=== PATIENT | male | born 1940 | race Caucasian/White ===

== ENCOUNTER 2018-10-11 10:06 | Inpatient (IN) | payer MEDICARE, BC ==
[~2018-10-11] VITALS: Ht 182.9 cm; Wt 122.0 kg
[~2018-10-11 10:06] MED LIST: ACYC1CAP23 PO; ALLO100T PO; ASCO500T11 PO; ATE50T PO; ATOR20TA50 PO; BICA50TA13 PO; CARB25TA22 PO; CYCL0.05 EACHEYE; DOXA4TAB40 PO; FOLI1TAB6 PO; HYDR-4441 PO; LEVO125T7 PO; NIFE90TA30 PO; PANT40TA2 PO; SULF500T37 PO; [UNRECOGNIZED DRUG - CODE] PO
[2018-10-11] MEDS ORDERED: MORPHINE SULFATE 4 MG/ML SYR/VIAL IV ONE (11:00)
[2018-10-11] MEDS ORDERED: ONDANSETRON HCL 4 MG/2 ML VIAL IV ONE (11:00)
[2018-10-11 11:01] LABS: Urine Bacteria NONE SEEN /hpf (None Seen); Urine Blood Negative /uL (Negative); Urine Specific Gravity 1.013 (1.001-1.035); Urine WBC 1 /hpf (0 - 3)
[2018-10-11 11:08] LABS: Basophils # (auto) 0 uL; Basophils % (auto) 0.6 % (0.0-2.0); Eosinophils # (auto) 0.1 uL; Eosinophils % (auto) 1.2 % (0.0-7.0); Hematocrit 29.3 % (41.0-53.0); Hemoglobin 9.4 g/dL (13.5-17.5); Lymphocytes % (auto) 16.7 % (10.0-50.0); Mean Corpuscular Hemoglobin 30.8 pg (28.0-32.0); Mean Corpuscular Hgb Conc. 32.1 g/dL (32.0-36.0); Monocytes # (auto) 0.9 uL; Monocytes % (auto) 14.4 % (0.0-12.0); Neutrophils # (auto) 4.1 uL; Neutrophils % (auto) 67.1 % (37.0-80.0); Nucleated Red Blood Cells % 0.1 %; Platelet Count (auto) 168 10^3/uL (140-450); Red Blood Cells 3.05 10^6/uL (4.5-5.90); Red Cell Distribution Width 17.5 % (11.8-14.3); White Blood Cell 6.1 10^3/uL (4.4-10.8)
[2018-10-11 11:19] LABS: Albumin 3.2 g/dL (3.4-5.0); Anion Gap 4 (5-15); Blood Urea Nitrogen 29 mg/dL (7-18); Calcium 9.1 mg/dL (8.5-10.1); Carbon Dioxide 22 mmol/L (21-32); Chloride 112 mmol/L (98-107); Glucose 108 mg/dL (74-106); Potassium 4.4 mmol/L (3.5-5.1); Sodium 138 mmol/L (136-145)
[2018-10-11 11:24] LABS: Alanine Aminotransferase < 6 U/L (16-61); Alkaline Phosphatase 98 U/L (45-117); Aspartate Aminotransferase 13 U/L (15-37); BUN/Creatinine Ratio 17.1; Bilirubin, Total 0.3 mg/dL (0.2-1.0); GFR African American 51 mL/min; GFR Non-African American 42 mL/min; Total Protein 7.5 g/dL (6.4-8.2)
[2018-10-11] MEDS ORDERED: cefTRIAXone 1GM/50ML D5W 50 ML IV ONE (12:30)
[2018-10-11] MEDS ORDERED: ACETAMINOPHEN 500 MG TAB PO PRN (13:15)
[2018-10-11] MEDS ORDERED: LEVOFLOXACIN 500MG 100 ML IV ONE (13:15)
[2018-10-11] MEDS ORDERED: NITROGLYCERIN 0.4 MG SL TAB SL PRN (13:15)
[2018-10-11] MEDS ORDERED: ALBUTEROL SULF 2.5 MG/0.5ML(0.5%) NEB SOLN NEB PRN (13:15)
[2018-10-11] MEDS ORDERED: PROMETHAZINE HCL 25 MG/ML 1ML IV PRN (13:15)
[2018-10-11] MEDS ORDERED: MORPHINE SULF INJ 2 MG/ML SYRINGE 1ML IV PRN (13:15)
[2018-10-11] MEDS ORDERED: LACTULOSE 20Gm/30ML SOLN PO PRN (13:15)
[2018-10-11] MEDS ORDERED: TEMAZEPAM 15 MG CAP PO PRN (13:15)
[2018-10-11] MEDS ORDERED: LORazepam 0.5 MG TAB PO PRN (13:15)
[2018-10-11] MEDS: SODIUM CHLORIDE 0.9% 1,000 ML IV SCH (13:41)
[2018-10-11] MEDS: CLINDAMYCIN 600MG IV 50 ML IV SCH ×2 (14:14→22:04)
[2018-10-11 15:25] VITALS: BP 142/84
[2018-10-11] MEDS ORDERED: HYDR-4683 PO (16:10)
[2018-10-11] MEDS ORDERED: FEXO-157 PO (16:10)
[2018-10-11] MEDS ORDERED: LEFL1TAB3 PO (16:10)
[2018-10-11] MEDS ORDERED: IBU600T PO (16:10)
[2018-10-11] MEDS ORDERED: METHPOW PO (16:10)
[2018-10-11] MEDS ORDERED: FURO40TA4 PO (16:10)
[2018-10-11] MEDS ORDERED: FLUT250M2 IN (16:10)
[2018-10-11] MEDS ORDERED: POM PO (16:10)
[2018-10-11 16:35] VITALS: BP 169/87
[2018-10-11 17:00] VITALS: BP 147/79
[2018-10-11] MEDS: ALBUTEROL SULF 2.5 MG/0.5ML(0.5%) NEB SOLN NEB SCH (19:12)
[2018-10-11] MEDS: traMADol HCL 50 MG TAB PO PRN (20:46)
[2018-10-11 21:46] VITALS: BP 142/70
[2018-10-11] MEDS ORDERED: ACYCLOVIR 200 MG/5 ML SUSP PO SCH (22:00)
[2018-10-11] MEDS: CYCLOSPORINE EYE EACHEYE SCH (22:00)
[2018-10-11] MEDS: ACYCLOVIR 400 MG TAB PO SCH (22:04)
[2018-10-11] MEDS: ATORVASTATIN 20 MG TAB PO SCH (22:04)
[2018-10-11] MEDS: DOXAZOSIN MESYL 2 MG TAB PO SCH (22:05)
[2018-10-11] MEDS: CARBIDOPA W LEVODOPA 25/100mg TABLET PO SCH (22:05)
[2018-10-11] MEDS: PANTOPRAZOLE 40 MG TAB PO SCH (22:06)
[2018-10-12] MEDS: ALBUTEROL SULF 2.5 MG/0.5ML(0.5%) NEB SOLN NEB SCH ×4 (00:50→19:13)
[2018-10-12] MEDS: SODIUM CHLORIDE 0.9% 1,000 ML IV SCH (02:13)
[2018-10-12 05:22] VITALS: BP 160/79
[2018-10-12] MEDS: CLINDAMYCIN 600MG IV 50 ML IV SCH ×3 (06:28→22:20)
[2018-10-12] MEDS: ACYCLOVIR 400 MG TAB PO SCH ×2 (06:29→10:29)
[2018-10-12] MEDS: CARBIDOPA W LEVODOPA 25/100mg TABLET PO SCH ×4 (06:29→22:19)
[2018-10-12] MEDS: LEVOTHYROXINE SODIUM 50 MCG TAB PO SCH (06:29)
[2018-10-12 06:49] LABS: Alanine Aminotransferase < 6 U/L (16-61); Albumin 2.7 g/dL (3.4-5.0); Anion Gap 4 (5-15); Aspartate Aminotransferase 10 U/L (15-37); Blood Urea Nitrogen 23 mg/dL (7-18); Calcium 8.7 mg/dL (8.5-10.1); Carbon Dioxide 21 mmol/L (21-32); Chloride 113 mmol/L (98-107); Glucose 82 mg/dL (74-106); Potassium 4.5 mmol/L (3.5-5.1); Sodium 138 mmol/L (136-145)
[2018-10-12 06:52] LABS: Alkaline Phosphatase 79 U/L (45-117); Bilirubin, Total 0.3 mg/dL (0.2-1.0); GFR African American 61 mL/min; GFR Non-African American 51 mL/min; Total Protein 6.4 g/dL (6.4-8.2)
[2018-10-12 09:00] VITALS: BP 155/76
[2018-10-12] MEDS ORDERED: PANTOPRAZOLE 40 MG TAB PO SCH (10:00)
[2018-10-12] MEDS: CYCLOSPORINE EYE EACHEYE SCH ×2 (10:00→22:20)
[2018-10-12] MEDS: LEVOFLOXACIN 500MG 100 ML IV SCH (10:27)
[2018-10-12] MEDS: ENOXAPARIN SOD 40 MG/0.4 ML SYRINGE SC SCH (10:27)
[2018-10-12] MEDS: BICALUTAMIDE 50 MG TAB PO SCH (10:28)
[2018-10-12] MEDS: SULFASALAZINE 500 MG TAB PO SCH ×2 (10:29→18:19)
[2018-10-12] MEDS: PANTOPRAZOLE 40 MG TAB PO SCH ×2 (10:29→22:20)
[2018-10-12] MEDS: NIFEdipine ER 30 MG TAB PO SCH (10:30)
[2018-10-12] MEDS: ALLOPURINOL 100 MG TAB PO SCH (10:30)
[2018-10-12] MEDS: ACETYLCYSTEINE 10 %(100MG/ML) SOL 4ML NEB SCH ×2 (11:49→19:13)
[2018-10-12 13:00] VITALS: BP 154/87
[2018-10-12 17:00] VITALS: BP 153/95
[2018-10-12] MEDS: traMADol HCL 50 MG TAB PO PRN (18:19)
[2018-10-12 22:00] VITALS: BP 146/74
[2018-10-12] MEDS: DOXAZOSIN MESYL 2 MG TAB PO SCH (22:20)
[2018-10-12] MEDS: ATORVASTATIN 20 MG TAB PO SCH (22:20)
[2018-10-13] MEDS: ACETYLCYSTEINE 10 %(100MG/ML) SOL 4ML NEB SCH ×4 (00:01→20:10)
[2018-10-13] MEDS: ALBUTEROL SULF 2.5 MG/0.5ML(0.5%) NEB SOLN NEB SCH ×4 (00:02→20:10)
[2018-10-13] MEDS: traMADol HCL 50 MG TAB PO PRN ×2 (00:40→16:45)
[2018-10-13] MEDS: MORPHINE SULFATE 4 MG/ML SYR/VIAL IV PRN ×2 (04:35→12:01)
[2018-10-13 05:00] VITALS: BP 143/69
[2018-10-13] MEDS: LEVOTHYROXINE SODIUM 50 MCG TAB PO SCH (06:22)
[2018-10-13] MEDS: CARBIDOPA W LEVODOPA 25/100mg TABLET PO SCH ×4 (06:22→22:20)
[2018-10-13] MEDS: CLINDAMYCIN 600MG IV 50 ML IV SCH ×3 (06:22→22:19)
[2018-10-13 06:47] LABS: Potassium 4.9 mmol/L (3.5-5.1)
[2018-10-13 06:54] LABS: BUN/Creatinine Ratio 16.6; Calcium 8.8 mg/dL (8.5-10.1)
[2018-10-13 09:00] VITALS: BP 154/91
[2018-10-13] MEDS: ALLOPURINOL 100 MG TAB PO SCH (09:37)
[2018-10-13] MEDS: LEVOFLOXACIN 500MG 100 ML IV SCH (09:37)
[2018-10-13] MEDS: ENOXAPARIN SOD 40 MG/0.4 ML SYRINGE SC SCH (09:37)
[2018-10-13] MEDS: FOLIC ACID 1 MG TAB PO SCH (09:38)
[2018-10-13] MEDS: PANTOPRAZOLE 40 MG TAB PO SCH ×2 (09:38→22:19)
[2018-10-13] MEDS: ATENOLOL 50 MG TAB PO SCH (09:38)
[2018-10-13] MEDS: CYCLOSPORINE EYE EACHEYE SCH ×2 (09:39→22:19)
[2018-10-13] MEDS: BICALUTAMIDE 50 MG TAB PO SCH (09:40)
[2018-10-13] MEDS: NIFEdipine ER 30 MG TAB PO SCH (09:40)
[2018-10-13] MEDS: SINEMET PO SCH (09:41)
[2018-10-13] MEDS: SULFASALAZINE 500 MG TAB PO SCH ×2 (09:44→18:35)
[2018-10-13] MEDS: CYANOCOBALAMIN 500 MCG TAB PO SCH (09:46)
[2018-10-13] MEDS ORDERED: LEFLUNOMIDE 20 MG PO SCH (10:00)
[2018-10-13 13:00] VITALS: BP 151/88
[2018-10-13 17:00] VITALS: BP 154/89
[2018-10-13 22:00] VITALS: BP 138/75
[2018-10-13] MEDS: DOXAZOSIN MESYL 2 MG TAB PO SCH (22:19)
[2018-10-13] MEDS: ATORVASTATIN 20 MG TAB PO SCH (22:19)
[2018-10-14] MEDS: ALBUTEROL SULF 2.5 MG/0.5ML(0.5%) NEB SOLN NEB SCH ×4 (01:21→19:45)
[2018-10-14] MEDS: ACETYLCYSTEINE 10 %(100MG/ML) SOL 4ML NEB SCH ×4 (01:21→19:45)
[2018-10-14 02:41] VITALS: BP 138/75
[2018-10-14 05:00] VITALS: BP 158/88
[2018-10-14] MEDS: CLINDAMYCIN 600MG IV 50 ML IV SCH ×3 (06:00→21:45)
[2018-10-14] MEDS: CARBIDOPA W LEVODOPA 25/100mg TABLET PO SCH ×4 (06:00→21:43)
[2018-10-14] MEDS: LEVOTHYROXINE SODIUM 50 MCG TAB PO SCH (06:00)
[2018-10-14] MEDS: SULFASALAZINE 500 MG TAB PO SCH ×2 (08:46→18:20)
[2018-10-14] MEDS: CYANOCOBALAMIN 500 MCG TAB PO SCH (08:46)
[2018-10-14] MEDS: FOLIC ACID 1 MG TAB PO SCH (08:46)
[2018-10-14] MEDS: ATENOLOL 50 MG TAB PO SCH (08:47)
[2018-10-14] MEDS: ALLOPURINOL 100 MG TAB PO SCH (08:48)
[2018-10-14] MEDS: NIFEdipine ER 30 MG TAB PO SCH (08:48)
[2018-10-14] MEDS: PANTOPRAZOLE 40 MG TAB PO SCH ×2 (08:48→21:43)
[2018-10-14] MEDS: ENOXAPARIN SOD 40 MG/0.4 ML SYRINGE SC SCH (08:49)
[2018-10-14] MEDS: LEVOFLOXACIN 500MG 100 ML IV SCH (08:49)
[2018-10-14] MEDS: BICALUTAMIDE 50 MG TAB PO SCH (08:49)
[2018-10-14] MEDS: CYCLOSPORINE EYE EACHEYE SCH ×2 (08:49→21:58)
[2018-10-14] MEDS: SINEMET PO SCH (09:08)
[2018-10-14 09:12] VITALS: BP 143/78
[2018-10-14 12:19] VITALS: BP 157/87
[2018-10-14] MEDS: traMADol HCL 50 MG TAB PO PRN (16:10)
[2018-10-14 16:51] VITALS: BP 133/77
[2018-10-14] MEDS: ATORVASTATIN 20 MG TAB PO SCH (21:43)
[2018-10-14] MEDS: DOXAZOSIN MESYL 2 MG TAB PO SCH (21:45)
[2018-10-14 22:00] VITALS: BP 137/74
[2018-10-15] MEDS: ALBUTEROL SULF 2.5 MG/0.5ML(0.5%) NEB SOLN NEB SCH ×4 (00:28→19:17)
[2018-10-15] MEDS: ACETYLCYSTEINE 10 %(100MG/ML) SOL 4ML NEB SCH ×4 (01:00→19:18)
[2018-10-15 05:00] VITALS: BP 144/79
[2018-10-15] MEDS: CLINDAMYCIN 600MG IV 50 ML IV SCH ×3 (06:09→21:59)
[2018-10-15] MEDS: CARBIDOPA W LEVODOPA 25/100mg TABLET PO SCH ×4 (06:09→21:54)
[2018-10-15] MEDS: LEVOTHYROXINE SODIUM 50 MCG TAB PO SCH (06:21)
[2018-10-15 09:00] VITALS: BP 138/77
[2018-10-15] MEDS: LEVOFLOXACIN 500MG 100 ML IV SCH (09:50)
[2018-10-15] MEDS: CYCLOSPORINE EYE EACHEYE SCH ×2 (09:50→21:59)
[2018-10-15] MEDS: FOLIC ACID 1 MG TAB PO SCH (09:51)
[2018-10-15] MEDS: PANTOPRAZOLE 40 MG TAB PO SCH ×2 (09:51→21:53)
[2018-10-15] MEDS: CYANOCOBALAMIN 500 MCG TAB PO SCH (09:51)
[2018-10-15] MEDS: ALLOPURINOL 100 MG TAB PO SCH (09:52)
[2018-10-15] MEDS: ENOXAPARIN SOD 40 MG/0.4 ML SYRINGE SC SCH (09:52)
[2018-10-15] MEDS: ATENOLOL 50 MG TAB PO SCH (09:52)
[2018-10-15] MEDS: NIFEdipine ER 30 MG TAB PO SCH (09:53)
[2018-10-15] MEDS: SINEMET PO SCH (09:53)
[2018-10-15] MEDS: BICALUTAMIDE 50 MG TAB PO SCH (09:54)
[2018-10-15] MEDS ORDERED: LEFLUNOMIDE 20 MG PO SCH (10:00)
[2018-10-15] MEDS: SULFASALAZINE 500 MG TAB PO SCH ×2 (10:01→18:30)
[2018-10-15 13:00] VITALS: BP 159/93
[2018-10-15] MEDS ORDERED: FUROSEMIDE 40 MG TAB PO ONE (15:15)
[2018-10-15 17:00] VITALS: BP 155/83
[2018-10-15] MEDS: DOXAZOSIN MESYL 2 MG TAB PO SCH (21:53)
[2018-10-15] MEDS: ATORVASTATIN 20 MG TAB PO SCH (21:53)
[2018-10-15 22:00] VITALS: BP 156/83
[2018-10-16] MEDS: ALBUTEROL SULF 2.5 MG/0.5ML(0.5%) NEB SOLN NEB SCH ×3 (00:26→13:43)
[2018-10-16] MEDS: ACETYLCYSTEINE 10 %(100MG/ML) SOL 4ML NEB SCH ×3 (00:27→13:43)
[2018-10-16 05:27] VITALS: BP 149/78
[2018-10-16] MEDS: CLINDAMYCIN 600MG IV 50 ML IV SCH (05:35)
[2018-10-16] MEDS: CARBIDOPA W LEVODOPA 25/100mg TABLET PO SCH ×2 (05:36→12:09)
[2018-10-16 06:15] LABS: BUN/Creatinine Ratio 15.1; Calcium 9.2 mg/dL (8.5-10.1); Potassium 4.7 mmol/L (3.5-5.1)
[2018-10-16] MEDS: LEVOTHYROXINE SODIUM 50 MCG TAB PO SCH (06:36)
[2018-10-16] MEDS ORDERED: FUROSEMIDE 40 MG TAB PO SCH (10:00)
[2018-10-16] MEDS ORDERED: LEVOFLOXACIN 250MG 50 ML IV ONE (10:30)
[2018-10-16] MEDS ORDERED: LEVO750T64 PO (10:43)
[2018-10-16] MEDS: SULFASALAZINE 500 MG TAB PO SCH (11:33)
[2018-10-16] MEDS: LEVOFLOXACIN 500MG 100 ML IV SCH (11:34)
[2018-10-16] MEDS: SINEMET PO SCH (11:34)
[2018-10-16] MEDS: CYCLOSPORINE EYE EACHEYE SCH (11:34)
[2018-10-16] MEDS: FOLIC ACID 1 MG TAB PO SCH (11:34)
[2018-10-16] MEDS: BICALUTAMIDE 50 MG TAB PO SCH (11:35)
[2018-10-16] MEDS: NIFEdipine ER 30 MG TAB PO SCH (11:36)
[2018-10-16] MEDS: ATENOLOL 50 MG TAB PO SCH (11:36)
[2018-10-16] MEDS: PANTOPRAZOLE 40 MG TAB PO SCH (11:36)
[2018-10-16] MEDS: CYANOCOBALAMIN 500 MCG TAB PO SCH (11:37)
[2018-10-16] MEDS: ENOXAPARIN SOD 40 MG/0.4 ML SYRINGE SC SCH (11:37)
[2018-10-16] MEDS: ALLOPURINOL 100 MG TAB PO SCH (11:37)
[2018-10-16 12:27] VITALS: BP 144/90
[2018-10-18] MEDS ORDERED: LEVOFLOXACIN 750MG 150 ML IV SCH (10:00)
== END 2018-10-16 16:35 | disposition home health service (06) | DRG 190 ==
LOC: ER 10:06 → TELE 13:17 → TELE-WESTW 16:36
PROVIDERS: ADMIT Internal Medicine; ATTEND Internal Medicine
DX: J44.0 Chronic obstructive pulmonary disease with (acute) lower respiratory infection (principal); J15.9 Unspecified bacterial pneumonia; E44.0 Moderate protein-calorie malnutrition; T17.990A Other foreign object in respiratory tract, part unspecified in causing asphyxiation, initial encounter; I12.9 Hypertensive chronic kidney disease with stage 1 through stage 4 chronic kidney disease, or unspecified chronic kidney disease; N18.3 Chronic kidney disease, stage 3 (moderate); E78.5 Hyperlipidemia, unspecified; M10.9 Gout, unspecified; I70.0 Atherosclerosis of aorta; K40.20 Bilateral inguinal hernia, without obstruction or gangrene, not specified as recurrent; M19.90 Unspecified osteoarthritis, unspecified site; H54.7 Unspecified visual loss; D63.8 Anemia in other chronic diseases classified elsewhere; Z96.612 Presence of left artificial shoulder joint; E03.9 Hypothyroidism, unspecified; G20 Parkinson's disease; I25.10 Atherosclerotic heart disease of native coronary artery without angina pectoris; Z85.46 Personal history of malignant neoplasm of prostate; Z79.899 Other long term (current) drug therapy; Z68.36 Body mass index [BMI] 36.0-36.9, adult; Z90.79 Acquired absence of other genital organ(s); X58.XXXA Exposure to other specified factors, initial encounter; Y93.89 Activity, other specified; Y92.89 Other specified places as the place of occurrence of the external cause
CPT/HCPCS: 36415; 71045; 71046; 74176; 80048; 80053; 81001; 83690; 84484; 85025; 94640; 96361; 96365; 96367; 96375; A6257; G0378; J0133; J0696; J1956; J2405; J3490